=== PATIENT | male | born 1935 | race Caucasian/White ===

== ENCOUNTER 2016-10-08 04:51 | Emergency (ER) | payer MEDICARE, OTHER ==
[2016-10-08 06:31] LABS: HEMOGLOBIN 14.8 gm/dl (14.0-17.5); RED BLOOD COUNT 4.85 M/UL (4.20-5.50); WHITE BLOOD COUNT 10.6 K/UL (4.5-11.0)
[2016-10-08 06:44] LABS: BUN/CREATININE RATIO 29 (0-10)
== END 2016-10-08 07:34 | disposition home or self-care (01) ==
LOC: ER1 04:51
PROVIDERS: Family Medicine
DX: S46.911A Strain of unspecified muscle, fascia and tendon at shoulder and upper arm level, right arm, initial encounter (principal); E11.65 Type 2 diabetes mellitus with hyperglycemia; D69.6 Thrombocytopenia, unspecified; Z79.82 Long term (current) use of aspirin; Z79.84 Long term (current) use of oral hypoglycemic drugs; Z79.899 Other long term (current) drug therapy; W01.0XXA Fall on same level from slipping, tripping and stumbling without subsequent striking against object, initial encounter; Y92.002 Bathroom of unspecified non-institutional (private) residence as the place of occurrence of the external cause
CPT/HCPCS: 36415; 73060; 80053; 85025; 93005; 99284

== ENCOUNTER → 2020-11-02 | Outpatient (CLI) | payer MEDICARE, OTHER ==
[~2020-11-02] MED LIST: AMLODIPINE BESY10 MG PO; ASPIRIN EC81 MG PO; CATAPRES 0.1MG0.1 MG PO; COZAAR100 MG PO; DIOVAN160 MG PO; ESSENTIAL DAIL1 EACH PO; FLAGYL500 MG PO; FLOMAX 0.4 MG0.4 MG PO; GLUCOTROL XL 22.5 MG PO; METOPROLOL TART25 MG PO; NORVASC 5 MG TAB5 MG PO; NORVASC2.5 MG PO; ULTRAM50 MG PO; VISION VITAMIN1 EACH PO; VITAMIN D-32000 UNIT PO; XYZAL5 MG PO
== END ==
LOC: KOH-I 13:57
DX: M70.62 Trochanteric bursitis, left hip (principal)
CPT/HCPCS: 73502

== ENCOUNTER 2020-11-09 07:52 | Emergency (ER) | payer MEDICARE, OTHER ==
[~2020-11-09 07:52] MED LIST changes: -ULTRAM50 MG PO
[2020-11-09] MEDS ORDERED: ULTRAM50 MG PO (09:01)
== END 2020-11-09 09:29 | disposition home or self-care (01) ==
LOC: ER1 07:52
DX: M25.552 Pain in left hip (principal); M79.672 Pain in left foot; I25.2 Old myocardial infarction; E11.9 Type 2 diabetes mellitus without complications; I10 Essential (primary) hypertension; Z79.01 Long term (current) use of anticoagulants; Z87.891 Personal history of nicotine dependence
CPT/HCPCS: 99283

== ENCOUNTER → 2020-11-20 | Outpatient (CLI) | payer MEDICARE, OTHER ==
[~2020-11-20] MED LIST changes: +ULTRAM50 MG PO
== END ==
LOC: KOH-I 11:41
DX: M54.5 Low back pain (principal); M47.817 Spondylosis without myelopathy or radiculopathy, lumbosacral region
CPT/HCPCS: 72100

== ENCOUNTER → 2020-11-28 | Outpatient (CLI) | payer MEDICARE, OTHER | LOC: EMI 09:40 | DX: M54.42 Lumbago with sciatica, left side (principal); M47.816 Spondylosis without myelopathy or radiculopathy, lumbar region; M51.26 Other intervertebral disc displacement, lumbar region | CPT/HCPCS: 72148 ==

== ENCOUNTER → 2021-03-08 | Outpatient (CLI) | payer MEDICARE, OTHER | LOC: KOH-I 15:55 | DX: Z71.3 Dietary counseling and surveillance (principal) | CPT/HCPCS: 71046 ==

== ENCOUNTER → 2021-03-27 | Outpatient (CLI) | payer MEDICARE, OTHER | LOC: WCC 13:58 | DX: S51.802A Unspecified open wound of left forearm, initial encounter (principal); E11.628 Type 2 diabetes mellitus with other skin complications | CPT/HCPCS: 97597 ==

== ENCOUNTER 2021-06-01 09:41 | Inpatient (IN) | payer MEDICARE, OTHER ==
[~2021-06-01] VITALS: Ht 180.3 cm; Wt 98.4 kg
[2021-06-01 10:36] LABS: HEMOGLOBIN 15.8 gm/dl (14.0-17.5); RED BLOOD COUNT 4.96 M/UL (4.20-5.50); WHITE BLOOD COUNT 7.8 K/UL (4.5-11.0)
[2021-06-01 10:51] LABS: BUN/CREATININE RATIO 25 (0-10)
[2021-06-01] MEDS ORDERED: HYDROCHLOROTH12.5 M1 PO (15:52)
[2021-06-01] MEDS ORDERED: PROSCAR 5 MG TAB5 MG PO (15:52)
[2021-06-01] MEDS ORDERED: PRESERVISION A1 EAC2 PO (15:53)
[2021-06-02 03:14] LABS: HEMOGLOBIN 14.8 gm/dl (14.0-17.5); RED BLOOD COUNT 4.63 M/UL (4.20-5.50)
[2021-06-02 03:15] LABS: WHITE BLOOD COUNT 10.3 K/UL (4.5-11.0)
[2021-06-02 03:42] LABS: BUN/CREATININE RATIO 23 (0-10)
[2021-06-02] MEDS ORDERED: LEVOFLOXACIN500 MG PO (12:03)
[2021-06-02] MEDS ORDERED: GLUCOPHAGE 500500 MG PO (12:10)
== END 2021-06-02 17:32 | disposition home or self-care (01) | DRG 195 ==
LOC: ER1 09:41 → PROG CARE 15:17 → CDU 15:17 → PROG CARE 17:24
PROVIDERS: Physician Assistant; ADMIT Internal Medicine
PROC: B24BZZZ Ultrasonography of Heart with Aorta (ICD-10-PCS; principal; 2021-06-02)
DX: J18.9 Pneumonia, unspecified organism (principal); I10 Essential (primary) hypertension; Z20.822 Contact with and (suspected) exposure to COVID-19; E78.5 Hyperlipidemia, unspecified; Z96.653 Presence of artificial knee joint, bilateral; I25.10 Atherosclerotic heart disease of native coronary artery without angina pectoris; N40.0 Benign prostatic hyperplasia without lower urinary tract symptoms; E11.65 Type 2 diabetes mellitus with hyperglycemia; Z87.891 Personal history of nicotine dependence; Z79.82 Long term (current) use of aspirin; Z79.899 Other long term (current) drug therapy; Z82.49 Family history of ischemic heart disease and other diseases of the circulatory system; I25.2 Old myocardial infarction; I45.10 Unspecified right bundle-branch block
CPT/HCPCS: ECHO; 36415; 71045; 80053; 80061; 81001; 82150; 82550; 82553; 82962; 83036; 83540; 83550; 83690; 83735; 83874; 83880; 84100; 84484; 85025; 85027; 85652; 86140; 87040; 93005; 93306; 99285; J1650; J2543; U0002